=== PATIENT | female | born 1965 | race Caucasian/White ===

== ENCOUNTER 2022-03-23 19:27 | Emergency (ER) | payer BC ==
[2022-03-23 19:46] VITALS: BP 119/80; PULSE 90; RESP 20; TEMP 97.9; BMI 32.5
== END 2022-03-23 23:05 | disposition home or self-care (01) ==
LOC: JERFT 19:27
DX: S09.90XA Unspecified injury of head, initial encounter (principal); S01.81XA Laceration without foreign body of other part of head, initial encounter; W01.198A Fall on same level from slipping, tripping and stumbling with subsequent striking against other object, initial encounter
CPT/HCPCS: 0241U-QW; 70450-TC; 99284-25